=== PATIENT | male | born 1950 | race Caucasian/White ===

== ENCOUNTER 2023-12-27 09:51 | Emergency (ER) | payer MEDICARE, OTHER ==
[~2023-12-27] VITALS: Ht 160 cm; Wt 63.5 kg
[2023-12-27] MEDS ORDERED: LISINOPRIL40 MG PO (10:04)
[2023-12-27] MEDS ORDERED: AMLODIPINE BESYL5 MG PO (10:04)
[2023-12-27] MEDS ORDERED: predniSONE 20 MG TAB PO ONE (10:15)
[2023-12-27] MEDS ORDERED: FAMOTIDINE 20 MG/ 2 ML VIAL IV ONE (10:15)
[2023-12-27] MEDS ORDERED: ASPIRIN 325 MG TAB PO ONE (10:15)
[2023-12-27 10:19] LABS: HEMATOCRIT 47.1 % (35.0-50.0); HEMOGLOBIN 15.9 g/dL (12.0-18.0); MCH 32.1 (27-36); MCHC 33.8 g/dl (30-36); PLATELET COUNT 277 K/uL (140-440); RBC 4.96 M/ul (4.3-5.7); RDW 13.3 (10.5-15.0)
[2023-12-27 10:31] LABS: ALBUMIN 4.3 g/dL (3.4-5.0); ALBUMIN/GLOBULIN RATIO 1.16 (1.1-2.4); ANION GAP 17.1 (7-21); BILIRUBIN, TOTAL 1.6 ng/dL (0.2-1.0); BUN/CREATININE RATIO 18.5 (6.0-28.6); CALCIUM 9.7 mg/dL (8.5-10.1); CREATININE, SERUM 3.35 mg/dL (0.70-1.30); POTASSIUM 4.1 mmol/L (3.5-5.1)
[2023-12-27 10:39] LABS: LYMPHOCYTES, MANUAL DIFF 18; MONOCYTES, MANUAL DIFF 7; NEUTROPHILS, MANUAL DIFF 75
[2023-12-27] MEDS ORDERED: PEPCID20 MG PO (12:51)
[2023-12-27] MEDS ORDERED: PREDNISONE20 MG PO (12:51)
[2023-12-27] MEDS ORDERED: EPIPEN 2-P0.3 MG/0.3 IM (12:51)
[2023-12-27 13:17] VITALS: BP 120/79
--- NOTE | 2023-12-27 16:08 | EKG ---
[facility] [address] [facility] [place], [place] [address] Signed Normal sinus rhythm Normal ECG No previous ECGs available Confirmed by SHANTE BECKMAN MD ([id number]) on 12/27/2023 4:08:09 PM Electronically Signed By: SHANTE BECKMAN 12/27/23 1608 PATIENT NAME: JONATHAN NOE Electrocardiogram DATE OF : 52 PHYSICIAN: SAHNTE BECKMAN REPORT #: [id number] REPORT IS CONFIDENTIAL AND NOT TO BE RELEASED WITHOUT AUTHORIZATION
== END 2023-12-27 13:19 | disposition home or self-care (01) ==
LOC: ED 09:51
PROVIDERS: Emergency Medicine
DX: T63.461A Toxic effect of venom of wasps, accidental (unintentional), initial encounter (principal); R07.9 Chest pain, unspecified; I10 Essential (primary) hypertension; Z79.899 Other long term (current) drug therapy
CPT/HCPCS: 36415; 71045; 80053; 84484; 85025; 93005; 93010; 96374; 99283-25; J7512

== ENCOUNTER 2024-02-01 23:26 | Emergency (ER) | payer MEDICARE, OTHER ==
[~2024-02-01] VITALS: Ht 160 cm; Wt 64.0 kg
[2024-02-01] MEDS ORDERED: DEXAMETHASONE SOD PHOS 10 MG/ML VIAL IV ONE (23:45)
[2024-02-01] MEDS ORDERED: diphenhydrAMINE HCL 50 MG/ML VIAL IV ONE (23:45)
[2024-02-01] MEDS ORDERED: FAMOTIDINE 20 MG/ 2 ML VIAL IV ONE (23:45)
[2024-02-01] MEDS ORDERED: CETIRIZINE HCL 10 MG TAB PO ONE (23:45)
[2024-02-02 00:33] VITALS: BP 123/81
== END 2024-02-02 00:30 | disposition home or self-care (01) ==
LOC: ED 23:26
DX: T63.441A Toxic effect of venom of bees, accidental (unintentional), initial encounter (principal); I10 Essential (primary) hypertension; Z91.030 Bee allergy status; Z79.899 Other long term (current) drug therapy
CPT/HCPCS: 96374; 96375; 99283-25; J1100; J1200